=== PATIENT | male | born 1945 | race Native Hawaiian/Other Pacific Islander ===

== ENCOUNTER 2020-07-07 12:49 | Outpatient (CLI) | payer OTHER | END 2020-07-07 22:02 | disposition home or self-care (01) | LOC: US 12:49 | DX: I73.9 Peripheral vascular disease, unspecified (principal) ==

== ENCOUNTER 2022-04-20 12:41 | Outpatient (CLI) | payer OTHER | END 2022-04-20 20:29 | disposition home or self-care (01) | LOC: US 12:41 | PROVIDERS: ATTEND Internal Medicine | DX: R47.02 Dysphasia (principal); Z98.890 Other specified postprocedural states ==

== ENCOUNTER 2022-04-24 10:15 | Outpatient (CLI) | payer OTHER | END 2022-04-24 18:58 | disposition home or self-care (01) | LOC: RAD 10:15 | PROVIDERS: ATTEND Internal Medicine | DX: M54.2 Cervicalgia (principal); M54.59 Other low back pain ==

== ENCOUNTER 2022-05-17 09:56 | Outpatient (CLI) | payer OTHER | END 2022-05-17 19:00 | disposition home or self-care (01) | LOC: US 09:56 | PROVIDERS: ATTEND Internal Medicine | DX: R42 Dizziness and giddiness (principal); H53.8 Other visual disturbances ==